=== PATIENT | female | born 1965 | race Caucasian/White ===

== ENCOUNTER → 2017-06-12 | Outpatient (CLI) | payer BC ==
[~2017-06-12] MED LIST: ADVICOR; ADVIL200 MG PO; CALCIUM200 MG PO; MASON NATURAL1200 MG PO; MULTI VITAMINS1 TAB PO; ZOCOR 10MG10 MG PO
== END ==
LOC: MC.RAD 11:40
DX: Z12.31 Encounter for screening mammogram for malignant neoplasm of breast (principal)

== ENCOUNTER → 2018-07-25 | Outpatient (CLI) | payer BC | LOC: MC.RAD 16:35 | DX: Z12.31 Encounter for screening mammogram for malignant neoplasm of breast (principal) ==

== ENCOUNTER → 2019-09-15 | Outpatient (CLI) | payer OTHER | LOC: MC.RAD 14:44 | DX: Z12.31 Encounter for screening mammogram for malignant neoplasm of breast (principal) ==

== ENCOUNTER → 2020-09-16 | Outpatient (CLI) | payer OTHER | LOC: MC.RAD 15:55 | DX: Z12.31 Encounter for screening mammogram for malignant neoplasm of breast (principal) ==

== ENCOUNTER → 2021-09-19 | Outpatient (CLI) | payer OTHER | LOC: MC.RAD 14:56 | DX: Z12.31 Encounter for screening mammogram for malignant neoplasm of breast (principal) ==

== ENCOUNTER → 2022-09-21 | Outpatient (CLI) | payer OTHER | LOC: MC.RAD 13:57 | DX: Z12.31 Encounter for screening mammogram for malignant neoplasm of breast (principal) ==